=== PATIENT | female | born 1975 | race Two or more races ===

== ENCOUNTER 2024-01-05 16:39 | Emergency (ER) | payer BC, OTHER ==
[~2024-01-05] VITALS: Ht 177.8 cm; Wt 83.0 kg
[2024-01-05] MEDS: IPRATROPIUM BROM 0.5 MG/2.5ML INH SOL HHN ONE (17:35)
[2024-01-05] MEDS: ALBUTEROL SULF 2.5 MG/0.5ML(0.5%) NEB SOLN HHN ONE (17:35)
[2024-01-05] MEDS ORDERED: METH4PAK PO (18:19)
[2024-01-05] MEDS ORDERED: ALBUAER3 IN (18:19)
[2024-01-05] MEDS: methylPREDNISolone SOD SUCC 125 MG/2 ML VL IV ONE (19:00)
[2024-01-05 19:17] VITALS: BP 141/90; PULSE 102; RESP 18; TEMP 97.9; O2SAT 98
== END 2024-01-05 19:20 | disposition home or self-care (01) ==
LOC: ER 16:39
DX: J45.901 Unspecified asthma with (acute) exacerbation (principal); T59.811A Toxic effect of smoke, accidental (unintentional), initial encounter; Z79.899 Other long term (current) drug therapy; Z88.0 Allergy status to penicillin; Y92.89 Other specified places as the place of occurrence of the external cause
CPT/HCPCS: 71046; 94640; 96374; 99283; J2919